=== PATIENT | male | born 1970 | race Caucasian/White ===

== ENCOUNTER 2020-07-01 15:54 | Emergency (ER) | payer BC ==
[2020-07-01] MEDS ORDERED: Ketorolac 30 MG/ML SDV IM ONE (16:11)
[2020-07-01] MEDS ORDERED: Ondansetron 4 MG Tab.DIS PO ONE (16:12)
[2020-07-01] MEDS ORDERED: HYDROmorphone 0.5 MG/0.5 ML Syringe IM ONE (16:17)
--- NOTE | 2020-07-01 17:02 | EDM.PDOC ---
ED HPI GENERAL MEDICAL PROBLEM - General Chief Complaint: Genitourinary Problem Stated Complaint: RIGHT FLANK PAIN/KIDNEY Time Seen by Provider: 07/01/20 16:04 Source of Information: Reports: Patient History Limitations: Reports: No Limitations - History of Present Illness INITIAL COMMENTS - FREE TEXT/NARRATIVE: 50-year-old male presenting to the emergency department for evaluation and treatment of acute onset right flank pain this morning around 10 AM. Pain is described as identical to previous kidney stone pain. Last kidney stone pain was in February 2020. Patient endorses onset of nausea associated with the pain but denies vomiting or diarrhea. Denies chest pain, shortness of breath, fever, chills or other symptoms. Pain begins in the right flank and radiates to the right lower abdomen. Patient unable to get comfortable. Patient denies any dysuria or hematuria. Patient states has not required surgical procedure with past kidney stones, but rather they have passed on their own. Denies other symptoms or concerns. Onset: Today Onset Date: 07/01/20 Onset Time: 10:00 Duration: Colic, Constant, Getting Worse Location: Reports: Back Quality: Reports: Sharp, Stabbing Severity: Severe Improves with: Reports: None Worsens with: Reports: None Associated Symptoms: Reports: Nausea/Vomiting Right Flank Pain Score (Numeric/FACES): 5 - Related Data Allergies Allergy/AdvReac Type Severity Reaction Status Date / Time No Known Allergies Allergy Verified 07/01/20 16:09 Home Meds: Home Meds Aspirin [Adult Low Dose Aspirin EC] 81 mg PO DAILY 07/01/20 [History] Erenumab-Aooe [Aimovig Autoinjector] 140 mg SQ ASDIRECTED 07/01/20 [History] Tamsulosin HCl [Flomax] 0.4 mg PO DAILY 7 Days #7 cap.er.24h 07/01/20 [Rx] Topiramate [Trokendi Xr] 200 mg PO DAILY 07/01/20 [History] Past Medical History Genitourinary History: Reports: Renal Calculus, Other (See Below) Musculoskeletal History: Reports: Arthritis Neurological History: Reports: Migraines - Past Surgical History Head Surgeries/Procedures: Reports: None Neurological Surgical History: Reports: None Musculoskeletal Surgical History: Reports: None Dermatological Surgical History: Reports: None Social & Family History - Tobacco Use Smoking Status *Q: Current Every Day Smoker Years of Tobacco use: 30 Packs/Tins Daily: 0.5 Used Tobacco, but Quit: No - Caffeine Use Caffeine Use: Reports: Coffee - Recreational Drug Use Recreational Drug Use: No ED ROS GENERAL - Review of Systems Review Of Systems: Comprehensive ROS is negative, except as noted in HPI. ED EXAM, RENAL/ - Physical Exam Exam: See Below Exam Limited By: No Limitations General Appearance: Moderate Distress Throat/Mouth: Normal Inspection, Normal Lips, Normal Teeth, Normal Gums, Normal Oropharynx, Normal Voice, No Airway Compromise Head: Atraumatic, Normocephalic Neck: Normal Inspection, Supple, Non-Tender, Full Range of Motion Respiratory/Chest: No Respiratory Distress, Lungs Clear, Normal Breath Sounds, No Accessory Muscle Use, Chest Non-Tender Cardiovascular: Normal Peripheral Pulses, Regular Rate, Rhythm, No Edema, No Gallop, No JVD, No Murmur, No Rub GI/Abdominal: Normal Bowel Sounds, Soft, Non-Tender, No Organomegaly, No Distention, No Abnormal Bruit, No Mass Back Exam: Normal Inspection, Full Range of Motion, NT Extremities: Normal Inspection, Normal Range of Motion, Non-Tender, Normal Capillary Refill, No Pedal Edema Neurological: Alert, Oriented, CN II-XII Intact, Normal Cognition, Normal Gait, Normal Reflexes, No Motor/Sensory Deficits Course - Vital Signs Last Recorded V/S: Last Vital Signs Temp 96.9 F 07/01/20 16:11 Pulse 80 07/01/20 16:11 Resp 18 07/01/20 16:11 BP 160/103 H 07/01/20 16:11 Pulse Ox 96 07/01/20 16:11 - Orders/Labs/Meds Labs: Laboratory Tests 07/01/20 07/01/20 07/01/20 Range/Units 16:19 16:27 16:27 WBC 10.0 (4.5-11.0) K/uL RBC 4.72 (4.30-5.90) M/uL Hgb 14.5 (12.0-15.0) g/dL Hct 43.1 (40.0-54.0) % MCV 91 (80-98) fL MCH 31 (27-31) pg MCHC 34 (32-36) % Plt Count 197 (150-400) K/uL Neut % (Auto) 69 H (36-66) % Lymph % (Auto) 16 L (24-44) % [place] % (Auto) 13 H (2-6) % Eos % (Auto) 2 (2-4) % Baso % (Auto) 0 (0-1) % Sodium 143 (140-148) mmol/L Potassium 3.5 L (3.6-5.2) mmol/L Chloride 108 (100-108) mmol/L Carbon Dioxide 24 (21-32) mmol/L Anion Gap 14.5 H (5.0-14.0) mmol/L BUN 21 H (7-18) mg/dL Creatinine 1.8 H (0.8-1.3) mg/dL Est Cr Clr Drug Dosing 54.49 mL/min Estimated GFR (MDRD) 40 L (>60) Glucose 92 (74-106) mg/dL Calcium 9.0 (8.5-10.1) mg/dL Total Bilirubin 0.4 (0.2-1.0) mg/dL AST 18 (15-37) U/L ALT 23 (12-78) U/L Alkaline Phosphatase 69 (46-116) U/L Total Protein 6.9 (6.4-8.2) g/dL Albumin 4.4 (3.4-5.0) g/dL Globulin 2.5 (2.3-3.5) g/dL Albumin/Globulin Ratio 1.8 (1.2-2.2) Lipase (73-393) U/L Urine Color Yellow (YELLOW) Urine Appearance Clear (CLEAR) Urine pH 6.0 (5.0-8.0) Ur Specific [place] 1.020 (1.008-1.030) Urine Protein Negative (NEGATIVE) mg/dL Urine Glucose (UA) Negative (NEGATIVE) mg/dL Urine Ketones Negative (NEGATIVE) mg/dL Urine Occult Blood Large H (NEGATIVE) Urine Nitrite Negative (NEGATIVE) Urine Bilirubin Negative (NEGATIVE) Urine Urobilinogen 1.0 (0.2-1.0) EU/dL Ur Leukocyte Esterase Negative (NEGATIVE) Urine RBC 20-30 H (0-5) Urine WBC Not seen (0-5) Ur Epithelial Cells Not seen Urine Bacteria Not seen 07/01/20 Range/Units 16:27 WBC (4.5-11.0) K/uL RBC (4.30-5.90) M/uL Hgb (12.0-15.0) g/dL Hct (40.0-54.0) % MCV (80-98) fL MCH (27-31) pg MCHC (32-36) % Plt Count (150-400) K/uL Neut % (Auto) (36-66) % Lymph % (Auto) (24-44) % [place] % (Auto) (2-6) % Eos % (Auto) (2-4) % Baso % (Auto) (0-1) % Sodium (140-148) mmol/L Potassium (3.6-5.2) mmol/L Chloride (100-108) mmol/L Carbon Dioxide (21-32) mmol/L Anion Gap (5.0-14.0) mmol/L BUN (7-18) mg/dL Creatinine (0.8-1.3) mg/dL Est Cr Clr Drug Dosing mL/min Estimated GFR (MDRD) (>60) Glucose (74-106) mg/dL Calcium (8.5-10.1) mg/dL Total Bilirubin (0.2-1.0) mg/dL AST (15-37) U/L ALT (12-78) U/L Alkaline Phosphatase (46-116) U/L Total Protein (6.4-8.2) g/dL Albumin (3.4-5.0) g/dL Globulin (2.3-3.5) g/dL Albumin/Globulin Ratio (1.2-2.2) Lipase 281 (73-393) U/L Urine Color (YELLOW) Urine Appearance (CLEAR) Urine pH (5.0-8.0) Ur Specific [place] (1.008-1.030) Urine Protein (NEGATIVE) mg/dL Urine Glucose (UA) (NEGATIVE) mg/dL Urine Ketones (NEGATIVE) mg/dL Urine Occult Blood (NEGATIVE) Urine Nitrite (NEGATIVE) Urine Bilirubin (NEGATIVE) Urine Urobilinogen (0.2-1.0) EU/dL Ur Leukocyte Esterase (NEGATIVE) Urine RBC (0-5) Urine WBC (0-5) Ur Epithelial Cells Urine Bacteria Meds: Medications Discontinued Medications Generic Name Dose Route Start Last Admin Trade Name Freq PRN Reason Stop Dose Admin Hydromorphone HCl 0.5 mg 07/01/20 16:17 07/01/20 16:28 Dilaudid IM 07/01/20 16:18 0.5 mg ONETIME ONE Administration Ketorolac Tromethamine 30 mg 07/01/20 16:11 07/01/20 16:26 Toradol IM 07/01/20 16:12 30 mg ONETIME ONE Administration Ondansetron HCl 4 mg 07/01/20 16:12 07/01/20 16:29 Zofran Odt PO 07/01/20 16:13 4 mg ONETIME ONE Administration Tamsulosin HCl 0.4 mg 07/01/20 17:31 07/01/20 17:47 Flomax PO 07/01/20 17:32 0.4 mg ONETIME ONE Administration - Radiology Interpretation Free Text/Narrative:: HISTORY: Possible kidney stone. COMPARISON: None TECHNIQUE: Noncontrast axial images were obtained through the abdomen and pelvis. FINDINGS: 4 mm stone right ureteral vesicle junction with mild right hydronephrosis. There are several tiny additional stones in both renal collecting systems no hydronephrosis on the left. Cyst at the upper pole of the left kidney. Con hypodense liver lesion are most likely cysts. The spleen is normal in size. The pancreas, gallbladder, and adrenal glands are within normal. The bowel is normal in caliber. The appendix is normal. Degenerative changes in the spine. Bilateral inguinal hernias containing fat. IMPRESSION: 4 mm right the UVJ stone with mild right hydronephrosis. Additional small stones in both kidneys Please note that all CT scans at this facility use dose modulation, iterative reconstruction, and/or weight-based dosing when appropriate to reduce radiation dose to as low as reasonably achievable. Dictated by Yesy Whitney MD @ Jul 01 2020 4:55PM (Electronic Signature) Departure - Departure Time of Disposition: 17:45 Disposition: Home, Self-Care 01 Condition: Good Clinical Impression: Kidney stone - Discharge Information Prescriptions: Tamsulosin HCl [Flomax] 0.4 mg PO DAILY 7 Days #7 cap.er.24h Instructions: Renal Colic Referrals: PCP,None [Primary Care Provider] - Forms: ED Department Discharge Additional Instructions: 1. Take medications as prescribed. 2. Follow-up with your primary care doctor/urologist in 1 to 2 weeks if not improving. 3. Seek immediate medical attention in an emergency setting with any worsening symptoms including, but not limited to fever, vomiting, uncontrolled pain. Sepsis Event Note (ED) - Evaluation Sepsis Screening Result: No Definite Risk - Focused Exam Vital Signs: Vital Signs Temp Pulse Resp BP Pulse Ox 07/01/20 16:11 96.9 F 80 18 160/103 H 96 07/01/20 16:08 96.9 F 80 18 160/103 H 96 - Assessment/Plan Assessment:: 50-year-old male with history of prior kidney stones presents with acute right flank pain consistent with previous episodes of kidney stones. He is hemodynamically stable and improved with interventions provided here in the emergency department. He has a creatinine of 1.8 with no available comparison. Patient states that he has polycystic kidney disease and suspects this is normal for him. 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 CT scan shows a 4 mm mid right ureteral stone. No evidence of infection. Patient does not require hospitalization for pain management or urologic intervention at this time. He is visiting from out of town. He will discharge home with Zofran and Percocet for symptomatic management as well as Flomax to facilitate stone passage and follow-up with his primary care doctor or urologist later this week as needed. Medically stable and improved. Discharge home. Plan: 1. Take medications as directed. 2. Schedule a follow-up appointment with your primary care doctor and/or urologist in 1 to 2 weeks as needed if not improving. 3. Seek immediate medical attention in the emergency setting with any rapidly worsening symptoms or concerns.
--- NOTE | 2020-07-01 17:10 | CRLCT ---
HISTORY: Possible kidney stone. COMPARISON: None. TECHNIQUE: Noncontrast axial images were obtained through the abdomen and pelvis. FINDINGS: 4 mm stone right ureteral vesicle junction with mild right hydronephrosis. There are several tiny additional stones in both renal collecting systems no hydronephrosis on the left. Cyst at the upper pole of the left kidney. Con hypodense liver lesion are most likely cysts. The spleen is normal in size. The pancreas, gallbladder, and adrenal glands are within normal. The bowel is normal in caliber. The appendix is normal. Degenerative changes in the spine. Bilateral inguinal hernias containing fat. IMPRESSION: 4 mm right the UVJ stone with mild right hydronephrosis. Additional small stones in both kidneys. Please note that all CT scans at this facility use dose modulation, iterative reconstruction, and/or weight-based dosing when appropriate to reduce radiation dose to as low as reasonably achievable. Dictated by Yesy Whitney MD @ Jul 01 2020 4:55PM Signed by Dr. Yesy Whitney @ Jul 01 2020 5:09PM
[2020-07-01] MEDS ORDERED: Tamsulosin 0.4 MG Cap.ER PO ONE (17:31)
== END 2020-07-01 17:50 | disposition home or self-care (01) ==
LOC: JP.ED 15:54
DX: N13.2 Hydronephrosis with renal and ureteral calculous obstruction (principal); M19.90 Unspecified osteoarthritis, unspecified site; F17.210 Nicotine dependence, cigarettes, uncomplicated; Z79.82 Long term (current) use of aspirin
CPT/HCPCS: 36415; 74176; 80053; 81001; 83690; 85025; 96372; 99284; A9270; J1170; J1885; 99283